=== PATIENT | male | born 1990 | race African-American/Black ===

== ENCOUNTER 2025-03-26 23:39 | Emergency (ER) | payer SELFPAY ==
[2025-03-26] MEDS ORDERED: HYDROcodone/Acetaminophen 10/325 mg Tablet ONE (23:58)
[2025-03-27 01:16] LABS: Bacteria/HPF None Seen HPF (None Seen); CAUTI Indications for Culture Dysuria,urgency,freq; Glucose, Urine (Dipstick) Normal (Negative); Leukocyte 75 Leu/uL (Negative); Protein, Urine (Dipstick) Negative (Neg-Trace); RBC/HPF 0-3 HPF (0-3); Specific Gravity, Urine 1.023 (1.002-1.036)
[2025-03-27 01:17] LABS: Urine Culture Reflex No No
[2025-03-27 05:15] LABS: Chlam.trachomatis by PCR,Urine Not Detected (NotDetected); GC N.gonorrhoeae PCR,UrineVOID Not Detected (NotDetected)
== END 2025-03-27 01:45 | disposition home or self-care (01) ==
LOC: ERS 23:39
DX: N45.1 Epididymitis (principal); I86.1 Scrotal varices
CPT/HCPCS: 76870; 81001; 87086; 87491; 87591; 93976